=== PATIENT | male | born 1995 | race African-American/Black ===

== ENCOUNTER 2019-11-01 17:00 | Outpatient (RCR) | payer BC, OTHER, SELFPAY ==
--- NOTE | 2019-09-13 11:49 | PTOPEVAL ---
PHYSICAL THERAPY EVALUATION AND PLAN OF CARE Thank you for referring this patient to [facility]. Please see below for details over evaluation. He is scheduled to be seen 1x/week for 4 weeks with re-evaluation to follow. Please review, sign, date and return this plan of care DUYEN. I agree with and certify that the following plan of care is medically necessary. Referring Physician Date Evaluation Outpatient Past Medical History Past Medical History Past Medical History Status Patient Denies Significant Past Medical History Evaluation Information Problem Diagnosis low back pain Onset 5 years ago Cause football Subjective Information Bobbi is here today with c/o Query Text:As Reported By Patient/ low back pain, left side, Family with occasional left radicular pain. He also experiences pain below left shoulder blade. Initial injury was 5 years ago playing football and he was hit from the left and felt an immediate shock down the left leg. He currently experiences leg symptoms only periodically and they go as far as the calf. 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 describes delgado splints when running/training for football t Left Spine, Lumbar Reported Pain Level 4 Pain Description Aching,Soreness Pain Frequency Chronic Current Pain Intensity 4 Lowest Pain Intensity 1 Greatest Pain Intensity 10 Pain Aggravating Factors Exercise/Activity,Sitting Other Pain Aggravating Factors running Lumbar ROM Lumbar Flexion Active Floor Lumbar Extension (0-40) 30 Lumbar Lateral Flexion Right (0-40) 30 Lumbar Lateral Flexion Left (0-40) 30 Lumbar Comments significant muscle bulking at thoracolumbar region/ paraspinals, right greater than left General Lower Extremity Range of Motion Reason Not Measured WNL/Left,WNL/Right Lumbar Strength Upper Abdominal Strength 4 Good Lower Abdominal Strength 3 Fair General Lower Extremity Strength Reason Not Measured WNL/Left,WNL/Right Gross Lower Extremity Strength report
--- NOTE | 2019-10-04 16:08 | PCPTNOTE ---
Patient did not show up for scheduled appointment this date.
--- NOTE | 2019-10-11 18:04 | PTOPEVAL ---
PHYSICAL THERAPY PLAN OF CARE UPDATE AND PROGRESS REPORT Thank you for referring this patient to [facility]. Bobbi will continue PT 1x/week for 4 weeks. Please review, sign, date and return this plan of care DUYEN. I agree with and certify that the following plan of care is medically necessary. Referring Physician Date Evaluation Information Problem Diagnosis low back pain Onset 5 years ago Cause football Subjective Information Bobbi participated in PT Query Text:As Reported By Patient/ evaluation and 1 PT visit and Family then was unable to attend due to work and holidays. He has been performing his HEP up to 5days/week. He does not report any significant change in pain at this time - continues to be very painful after working at [employer] . Pain Assessment Left Spine, Lumbar Reported Pain Level 0 Pain Description Aching Current Pain Intensity 0 Greatest Pain Intensity 6 Pain Score Pain Score 0: Self Report Lumbar ROM Lumbar ROM Lumbar Flexion Active Floor Query Text:Hands to: Lumbar Extension (0-40) 30 Query Text:Active in Degrees Lumbar Lateral Flexion Right (0-40) 40 Query Text:Active in Degrees Lumbar Lateral Flexion Left (0-40) 40 Query Text:Active in Degrees Lumbar Comments significant muscle bulking at thoracolumbar region/ paraspinals, right greater than left --continues to have significant muscle bulking through paraspinals with increased kyphosis and forward shoulders General Lower Extremity Range of Motion Reason Not Measured WNL/Left,WNL/Right General Lower Extremity Strength Reason Not Measured WNL/Left,WNL/Right Gross Lower Extremity Strength reports right LE strength testing painful to low back; gluteus medius : R = 4+/5, left = 4-/5 Posture Posture Standing Position Posture Evaluation View Posterior Thoracic Spine Posture Increased Kyphosis Shoulder Posture (L) Forward,(R) Forward Scapula Posture (L) Protracted,(R) Protracted Palpation Palpation bilateral QL are tight and short, right>left; bilateral
--- NOTE | 2019-11-08 17:34 | PCPTNOTE ---
Patient did not show up for scheduled appointment this date.
--- NOTE | 2019-11-15 17:30 | PTOPEVAL ---
PHYSICAL THERAPY DISCHARGE REPORT Thank you for referring Bobbi to [facility]. I recommend discharge from PT at this time. Please review, sign, date and return this plan of care DUYEN. I agree with and certify that the following plan of care is medically necessary. Referring Physician Date Diagnosis low back pain Onset 5 years ago Cause football Subjective Information Bobbi participated in PT evaluation and 5 weeks of PT. He reports feeling much stronger and knowledgeable. He feels much more comfortable in performing conditioning for football. Left Spine, Lumbar Reported Pain Level 0 Lumbar ROM Lumbar Flexion Active Floor Query Text:Hands to: Lumbar Extension (0-40) 30 Query Text:Active in Degrees Lumbar Lateral Flexion Right (0-40) 50 Query Text:Active in Degrees Lumbar Lateral Flexion Left (0-40) 50 Query Text:Active in Degrees Lower Extremity Muscle Strength Testing Reason Not Measured WNL/Left,WNL/Right Gross Lower Extremity Strength gluteus medius: R = 5/5, left = 5/5 Palpation Palpation bilateral QL are tight and short, right>left; bilateral anterior tibialis: tight and trigger points, right>left --- progressing, but right continues to be worse than left Clinical Summary Bobbi is a 23 yo male presenting to outpatient PT with c/o chronic low back pain. Today he demonstrates normal strength and good movement quality of lumbar spine. He states that he feels much stronger and he understands how to use his new skills and knowledge. I recommend discharge at this time. PT Services Indicated Yes Rehabilitation Potential Good Patient/Caregiver's Personal Goals for decrease back pain, prepare Rehabilitation for football
== END 2019-11-16 08:39 | disposition home or self-care (01) ==
LOC: ANHPT 17:00
DX: M54.5 Low back pain (principal)
CPT/HCPCS: 97110; 97140; 97161

== ENCOUNTER 2020-01-28 12:31 | Emergency (ER) | payer BC, OTHER, SELFPAY ==
--- NOTE | ~2020-01-28 | XR_ITS ---
EXAMINATION: XR chest 2V DATE: 01/28/2020 12:55 INDICATION: Right-sided chest pain TECHNIQUE: PA and lateral views of the chest are obtained. COMPARISON: 01/16/2014 FINDINGS: The lungs are free of acute opacities. There is no pleural effusion or pneumothorax. The ca rdiomediastinal silhouette is normal. There is mild thoracic spondylosis. IMPRESSION: 1. No acute cardiopulmonary abnormality. Reviewed, dictated and finalized at location A.
[2020-01-28 12:40] VITALS: BP 140/73; PULSE 68; RESP 20; TEMP 36.8; O2SAT 100
--- NOTE | 2020-01-28 12:46 | ED.URI ---
HPI - URI/Sore Throat General Chief Complaint: Upper Respiratory Infection Stated Complaint: PAIN WITH DEEP BREATH Time Seen by Provider: 01/28/20 12:34 Source: patient Mode of arrival: ambulatory Limitations: no limitations History of Present Illness HPI Narrative: Patient is a 24-year-old male who presents with right-sided chest pain that occurred today patient notes pain to the anterior chest and posterior thorax pain is worse with deep breathing denies URI symptoms does note that yesterday he had diarrhea but denies any current abdominal pain fever chills nausea vomiting rectal bleeding or melena. Patient denies similar occurrence in the past and has not taken anything. Patient denies any sick contact Related Data Allergies Allergy/AdvReac Type Severity Reaction Status Date / Time No Known Allergies Allergy Verified 01/28/20 12:43 Review of Systems Review of Systems: All systems reviewed & are unremarkable except as noted in HPI and below PMFSH Social History Social History (Updated 01/28/20 @ 12:48 by Luciano Reid PA-C) Smoking status: Light tobacco smoker Substance use: never Living arrangements: with family Occupation/Education: occupation Gender identity (if verbalized by the patient): Male Exam Narrative: Exam Narrative: GENERAL: Well-appearing, well-nourished, and in no acute distress. HEAD: Normocephalic, atraumatic. EYES: PERRLA and EOMI. ENT: Nares clear, no rhinorrhea or epistaxis. Mucous membranes moist. CHEST: Clear to auscultation. No respiratory distress. No wheezes rales or rhonchi HEART: Regular rate and rhythm. No murmur heard. Normal peripheral pulses. ABDOMEN: Soft, nontender, nondistended EXTREMITIES: Normal range of motion. No edema. SKIN: Warm, dry, no rash. NEURO: No focal deficits. Alert and oriented x3. Cranial nerves II through XII grossly intact PSYCH: Normal mood and affect. Course Course Emergency Course: Patient in the room in no distress no high risk changes in the imaging or blood work felt appropriate for outpatient reevaluation Vital Signs Vital signs: Vital Signs Temperature 98.2 F 01/28/20 12:40 Pulse Rate 68 01/28/20 12:40 Respiratory Rate 20 01/28/20 12:40 Blood Pressure 140/73 01/28/20 12:40 Pulse Oximetry 100 01/28/20 12:40 Temperature 98.2 F 01/28/20 12:40 Pulse Rate 68 01/28/20 12:40 Respiratory Rate 20 01/28/20 12:40 Blood Pressure 140/73 01/28/20 12:40 Pulse Oximetry 100 01/28/20 12:40 MDM - URI/Sore Throat MDM Narrative Medical decision making narrative: Patient in the room in no distress no high risk changes in the blood work or imaging normal vital signs afebrile nontoxic-appearing no URI symptoms felt appropriate for outpatient reevaluation provided with reasons to return Lab Data Result diagrams: 01/28/20 13:38 01/28/20 13:38 Labs: Lab Results 01/28/20 01/28/20 01/28/20 Range/Units 13:38 13:38 13:38 WBC 3.2 L (4.5-10.0) K/mm3 RBC 5.16 (4.6-6.20) M/mm3 Hgb 15.8 (14.0-18.0) g/dL Hct 47.5 (42.0-52.0) % MCV 92.1 (80-100) fl MCH 30.6 (26-34) pg MCHC 33.3 (32-36) g/dl RDW 13.1 (11.5-14.5) % Plt Count 163 (150-375) k/mm3 MPV 11.3 H (7.4-10.4) fl Immature Gran % (Auto) 0.3 (0-0.5) % Neut % (Auto) 46.2 (45.5-73.1) % Lymph % (Auto) 40.9 (18.3-44.2) % Clinch % (Auto) 9.4 H (2.6-8.5) % Eos % (Auto) 1.9 (0-4.4) % Baso % (Auto) 1.3 H (0.2-1.2) % Lymph # (Auto) 1.31 (0.9-3.2) K/mm3 Clinch # (Auto) 0.3 (0.1-0.6) K/mm3 Eos # (Auto) 0.1 (0-0.3) K/mm3 Baso # (Auto) 0.0 (0.0-0.1) K/mm3 Abs Immat Gran (auto) 0.01 (0.00-0.031) K/mm3 Absolute Neuts (auto) 1.5 (1.3-6.7) K/mm3 Absolute Nucleated RBC 0.0 (0.0-0.012) K/mm3 Nucleated RBC % 0.0 (0.0-0.2) % D-Dimer 0.27 (<0.48) ug/mL Sodium 137 (137-145) mmol/L Potassium 4.2 (3.4-5.0) mmol/L Chloride 100
[2020-01-28 13:49] LABS: Basophils Percent Auto 1.3 % (0.2-1.2); Eosinophils Absolute Auto 0.1 K/mm3 (0-0.3); Eosinophils Percent Auto 1.9 % (0-4.4); Hematocrit 47.5 % (42.0-52.0); Hemoglobin 15.8 g/dL (14.0-18.0); Immature Granulocyte Absolute 0.01 K/mm3 (0.00-0.031); Immature Granulocyte Percent A 0.3 % (0-0.5); Lymphocytes Absolute Auto 1.31 K/mm3 (0.9-3.2); Lymphocytes Percent Auto 40.9 % (18.3-44.2); Mean Corpuscular HGB Conc 33.3 g/dl (32-36); Mean Corpuscular Hemoglobin 30.6 pg (26-34); Mean Corpuscular Volume 92.1 fl (80-100); Mean Platelet Volume 11.3 fl (7.4-10.4); Monocytes Absolute Auto 0.3 K/mm3 (0.1-0.6); Monocytes Percent Auto 9.4 % (2.6-8.5); Neutrophils Absolute Auto 1.5 K/mm3 (1.3-6.7); Neutrophils Percent Auto 46.2 % (45.5-73.1); Platelet Count Result 163 k/mm3 (150-375); Red Blood Count 5.16 M/mm3 (4.6-6.20); Red Cell Distribution Width 13.1 % (11.5-14.5); White Blood Count 3.2 K/mm3 (4.5-10.0)
[2020-01-28 14:02] LABS: Alanine Aminotransferase 18 U/L (4-50); Albumin Level 4.6 g/dL (3.5-5.1); Alkaline Phosphatase 53 U/L (38-126); Aspartate Amino Transferase 26 U/L (17-59); Bilirubin,Total 0.7 mg/dL (0.2-1.3); Blood Urea Nitrogen 15 mg/dL (9-20); Calcium 9.3 mg/dL (8.4-10.2); Carbon Dioxide 31 mmol/L (22-30); Chloride 100 mmol/L (98-107); Estimated Glomerular Filt Rate > 60; Glucose 83 mg/dL (75-110); Potassium 4.2 mmol/L (3.4-5.0); Sodium 137 mmol/L (137-145)
[2020-01-28 14:13] LABS: D Dimer 0.27 ug/mL (<0.48)
[2020-01-28 14:30] VITALS: BP 129/86; PULSE 64; RESP 14; O2SAT 100
== END 2020-01-28 14:30 | disposition home or self-care (01) ==
PROVIDERS: Emergency Medicine Emergency Medical Services; Emergency Provider Emergency Medicine
DX: R07.9 Chest pain, unspecified (principal); F17.200 Nicotine dependence, unspecified, uncomplicated
CPT/HCPCS: 36415; 71046; 80053; 85025; 85380; 99283

== ENCOUNTER 2022-07-25 13:25 | Emergency (ER) | payer OTHER, SELFPAY ==
[2022-07-25 13:33] VITALS: BP 137/64; PULSE 64; RESP 16; TEMP 36.6; O2SAT 100
--- NOTE | 2022-07-25 14:21 | ED.EXTPRO ---
HPI - Extremity Problem General Chief complaint: Extremity Problem,Nontraumatic Stated complaint: side Right Hand numbness Time Seen by Provider: 07/25/22 14:21 Source: patient, RN notes reviewed and old records reviewed Mode of arrival: ambulatory Limitations: no limitations History of Present Illness HPI Narrative: 26 year old male who presents to [facility] with complaint of right hand pain and numbness to ulnar side of his right hand intermittently. 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 He states after resting his arm a few days it improved. he states that if he uses his hand a lot the ulnar side of his hand and forearm get tight and painful, He is unable to get appointment prior to him [place] out of [place] the 07 of August. MD Complaint: extremity pain (right forearm and ulnar side of hand) Onset (ago): week(s) (1 -1 1/2) Severity scale (1-10): 6 (right ulnar aspect hand and forearm) Related Data Allergies Allergy/AdvReac Type Severity Reaction Status Date / Time No Known Allergies Allergy Verified 07/25/22 13:46 Review of Systems Review of Systems: CONSTITUTIONAL: Denies fever, chills, or sweats. CARDIOVASCULAR: Denies chest pain, palpitations, or edema. RESPIRATORY: Denies cough or dyspnea. SKIN: Denies rash or itching. Denies lacerations or abrasions MUSCULOSKELETAL: Reports intermittent numbness to right ulnar region of hand with tightness and pain to forearm area with increased use of right arm/hand NEUROLOGIC: Denies numbness, or weakness. All systems reviewed & are unremarkable except as noted in HPI and below PMFSH Social History Social History (Updated 07/25/22 @ 15:36 by Magalys Mckeon NP) Smoking status: Former smoker Tobacco type: cigarettes Alcohol intake: current Alcohol use details: social Substance use: never Gender identity (if verbalized by the patient): Male Comments At time of signature, agree with nursing past medical, surgical, social and family history. There is no relevant family history pertinent to the presenting complaint Exam Narrative: GENERAL: Well-appearing, well-nourished, and in no acute distress. HEAD: Normocephalic, atraumatic. EYES: PERRLA, conjunctivae clear NECK: Supple. CHEST: Speaks in full sentences. No respiratory distress. HEART: Regular rate and rhythm. Normal and equal peripheral pulses. EXTREMITIES: Right forearm and hand has normal strength and sensation, normal range of motion. No edema or ecchymosis. 5/5 strength with normal flexion and extension. Reports episodes of ulnar side of right hand feeling numb at times related on activity level.Normal sensation with sensitivity to light touch and pain at present time. No point tenderness.? ?No open wounds, no skin tenting, no devitalized tissue or atrophy, no trophic changes, no obvious deformity, alignment normal, nearby joints and structures intact. Distal pulses palpable and equal bilaterally, skin warm, dry, pink. Capillary refill less than 3 seconds. Course Course Level of Care: Express Care Visit Vital Signs Vital signs: Vital Signs Temperature 36.6 C 07/25/22 13:33 Pulse Rate 64 07/25/22 13:33 Respiratory Rate 16 07/25/22 13:33 Blood Pressure 137/64 07/25/22 13:33 Pulse Oximetry 100 07/25/22 13:33 Oxygen Delivery Room Air 07/25/22 13:33 Temperature 36.6 C 07/25/22 13:33 Pulse Rate 64 07/25/22 13:33 Respiratory Rate 16 07/25/22 13:33 Blood Pressure 137/64 07/25/22 13:33 Pulse Oximetry 100 07/25/22 13:33 Oxygen Delivery Room Air 07/25/22 13:33 MDM - Extremity (Nontraumatic) Differential Diagnosis Differential diagnosis: Likely other (pain to right hand and forearm, carpal tunnel syndrome, ulnar nerve entrapment) Medical Records Attestation: I reviewed the patient's medical records. Critical Care Time Critical Care Time
== END 2022-07-25 14:41 | disposition home or self-care (01) ==
PROVIDERS: Emergency Provider Registered Nurse
DX: G56.21 Lesion of ulnar nerve, right upper limb (principal); Z87.891 Personal history of nicotine dependence
CPT/HCPCS: 99213; G0463

== ENCOUNTER 2023-12-16 00:39 | Emergency (ER) | payer SELFPAY ==
--- NOTE | ~2023-12-16 | XR_ITS ---
Clinical Indication: Pain PA and lateral views of the chest: Comparison: None Findings: The lungs are clear, without evidence of focal consolidation or pleural effusion. Cardiome diastinal silhouette is within normal limits. Bones and soft tissues are unremarkable. Impression: Normal chest. Reviewed, dictated and finalized at location . Impression: Normal chest.
[2023-12-16 00:42] VITALS: BP 148/82; PULSE 60; RESP 16; TEMP 36.2; O2SAT 100
[2023-12-16 00:53] VITALS: BP 129/83; PULSE 60; RESP 15; TEMP 36.6; O2SAT 100
--- NOTE | 2023-12-16 01:11 | ED.GENADULT ---
HPI - General Adult General Chief complaint: Unspecified Stated complaint: shortness of breath/pain Time Seen by Provider: 12/16/23 01:01 Source: patient Mode of arrival: ambulatory Limitations: no limitations History of Present Illness HPI narrative: This is a 28-year-old male who presents to the ED with chief complaint of right-sided rib pain this started 4 days ago. Patient reports that he was playing football last week and had an injury to the chest wall. Reports the day after he started having some pain in the right chest wall. He states that the pain has slowly gotten progressively worse and he has some difficulty with breathing due to pain. Denies any further site of injury or pain. Denies exertional component to pain. Denies cough or recent illness. Related Data Allergies Allergy/AdvReac Type Severity Reaction Status Date / Time No Known Allergies Allergy Verified 12/16/23 00:46 Review of Systems Review of Systems: All systems as dictated in HPI Exam Narrative: GENERAL: Well-appearing, well-nourished, and in no acute distress. HEAD: Normocephalic, atraumatic. EYES: PERRLA and EOMI. ENT: Nares clear, no rhinorrhea or epistaxis. Mucous membranes moist. Oropharynx without tonsillar hypertrophy exudate or other lesions. NECK: Supple. No adenopathy or masses. CHEST: No respiratory distress. 100% room air. Tenderness to the right anterolateral chest wall. Point tenderness over the 8th rib. No bruising or crepitus. Breath sounds are equal bilaterally. HEART: Regular rate and rhythm. No murmur heard. Normal peripheral pulses. ABDOMEN: Soft, nontender, nondistended, normal active bowel sounds. MSK: Normal range of motion. No edema. SKIN: Warm, dry, no rash. NEURO: Alert and oriented x3. No focal deficits. PSYCH: Normal mood and affect. Course Vital Signs Vital signs: Vital Signs Temperature 97.2 F L 12/16/23 00:42 Pulse Rate 60 12/16/23 00:42 Respiratory Rate 16 12/16/23 00:42 Blood Pressure 148/82 H 12/16/23 00:42 Pulse Oximetry 100 12/16/23 00:42 Oxygen Delivery Room Air 12/16/23 00:42 Temperature 97.8 F 12/16/23 00:53 Pulse Rate 60 03/13/24 00:53 Respiratory Rate 15 12/16/23 00:53 Blood Pressure 129/83 12/16/23 00:53 Pulse Oximetry 100 12/16/23 00:53 Oxygen Delivery Room Air 12/16/23 00:42 Medical Decision Making MDM Narrative Medical decision making narrative: This is a 28-year-old male who presents to the ED with chief complaint of right-sided rib pain after injury that occurred just under a week ago. Vitals are normal. Exam remarkable for the above. He does have point tenderness to the right anterolateral ribs. No bruising or crepitus. No signs of trauma. Chest x-ray preliminary shows no acute findings. No obvious rib fracture identified. Patient will be treated for probable bruised rib. Explained that he may have a small fracture that is occult. Incentive spirometer given. Pt will be discharged in stable condition. Return precautions given and supportive measures discussed. Pt is understanding and agreeable with plan for discharge and follow-up with PCP. Vital Signs Vital Signs: Vital Signs Temperature 97.2 F L 12/16/23 00:42 Pulse Rate 60 12/16/23 00:42 Respiratory Rate 16 12/16/23 00:42 Blood Pressure 148/82 H 12/16/23 00:42 Pulse Oximetry 100 12/16/23 00:42 Oxygen Delivery Room Air 12/16/23 00:42 Temperature 97.8 F 12/16/23 00:53 Pulse Rate 60 12/16/23 00:53 Respiratory Rate 15 12/16/23 00:53 Blood Pressure 129/83 12/16/23 00:53 Pulse Oximetry 100 12/16/23 00:53 Oxygen Delivery Room Air 12/16/23 00:42 Discharge Plan Discharge Clinical Impression: Bruised rib Patient Disposition: Home, Self-Care Condition: Stable Instructions: Antibiotic Form Additional Instructions: Your exam and imaging are overall reassuring. There is a possible small fracture that canno
== END 2023-12-16 02:07 | disposition home or self-care (01) ==
LOC: ANHED 02:05
PROVIDERS: Emergency Provider Physician Assistant
DX: S20.211A Contusion of right front wall of thorax, initial encounter (principal); X58.XXXA Exposure to other specified factors, initial encounter
CPT/HCPCS: 71046; 99283

== ENCOUNTER 2024-05-18 20:41 | Emergency (ER) | payer OTHER, SELFPAY ==
--- NOTE | ~2024-05-18 | XR_ITS ---
EXAMINATION: XR chest 2V DATE: 05/18/2024 21:12 INDICATION: Chest pain and tightness TECHNIQUE: PA and lateral views of the chest were obtained. COMPARISON: Chest radiograph dated 12/16/2023 FINDINGS: The lungs remain clear with no focal airspace opacities, pulmonary edema, pleural effusion or pneumot horax. The cardiomediastinal silhouette is normal. Unchanged mild anterior wedging of a few mid thora cic vertebral bodies. IMPRESSION: 1. No acute cardiopulmonary disease. Reviewed, dictated and finalized at location A.
--- NOTE | 2024-05-18 20:45 | ECG_ITS ---
Test Date: 2024-05-18 20:51:09 Measurements Intervals [place] Rate: 72 P: 77 [place]: 158 QRS: 51 QRSD: 83 T: 58 QT: 346 QTc: 380 Interpretive Statements SINUS RHYTHM WITH SINUS ARRHYTHMIA No previous ECG available for comparison Electronically Signed On 05-19-2024 09:55:38 CDT by Leatha Mac M.D.
[2024-05-18 20:52] VITALS: BP 143/89; PULSE 71; RESP 20; TEMP 36.7; O2SAT 100
[2024-05-18 21:18] VITALS: O2SAT 100
--- NOTE | 2024-05-18 21:22 | ED.GENADULT ---
HPI - General Adult General Chief complaint: Chest Pain Stated complaint: chest pain Time Seen by Provider: 05/18/24 21:11 History of Present Illness HPI narrative: This is a pleasant 28-year-old male presenting ED with multiple complaints. Patient had his 1st child 2 months ago. Since then he has been having increased issues with anxiety. He had a panic attack in a restaurant 2 weeks ago and since then has been having intermittent chest tightness/pressure and tingling. The symptoms happen throughout the day but mostly when he is by himself. The symptoms go away when he is with his family. Patient is also started to have intermittent loose stools and constipation over the last several weeks. It is associated with some crampy lower abdominal pain. He has also developed reflux symptoms and feels that when he eats too much a meal it sits in stomach and then he gets regurgitation into his throat. Patient denies fevers chills URI symptoms shortness of breath urinary symptoms. Suicidal or homicidal ideation. Related Data Allergies Allergy/AdvReac Type Severity Reaction Status Date / Time No Known Allergies Allergy Verified 12/16/23 00:46 Exam Narrative: APPEARANCE: Well-appearing, anxious Head: atraumatic. EYES: EOMI, NOSE: Atraumatic NECK: Trachea midline RESPIRATORY: No increased rate of breathing clear to auscultation CARDIOVASCULAR: RRR, no peripheral edema ABDOMINAL: Non-distended soft nontender no CVA tenderness MUSCULOSKELETAl: No obvious deformities NEURO: Alert. Moving 4/4 extremities SKIN:: Warm, dry. Normal color PSYCHIATRIC: Anxious Course Vital Signs Vital signs: Vital Signs Temperature 98.1 F 05/18/24 20:52 Pulse Rate 71 05/18/24 20:52 Respiratory Rate 20 05/18/24 20:52 Blood Pressure 143/89 H 05/18/24 20:52 Pulse Oximetry 100 05/18/24 20:52 Oxygen Delivery Room Air 05/18/24 20:52 Temperature 98.1 F 05/18/24 20:52 Pulse Rate 71 05/18/24 20:52 Respiratory Rate 20 05/18/24 20:52 Blood Pressure 143/89 H 05/18/24 20:52 Pulse Oximetry 100 05/18/24 21:18 Oxygen Delivery Room Air 05/18/24 21:18 Medical Decision Making [facility] Narrative Medical decision making narrative: -Course: This is a 28-year-old male who is recently becoming father presenting with multiple complaints. Patient has been having new onset anxiety with panic attacks that are associated with intermittent chest tightness. He has also had alternating constipation and loose stools as well as reflux symptoms. He has no findings on exam. His vital signs are stable. He is well-appearing. Chest x-ray and EKG were normal. Patient would like referral to a primary care physician for further management of his anxiety and other miscellaneous complaints. -DDX includes but is not limited to: Anxiety, stress reaction, viral syndrome, irritable bowel syndrome, enteritis -Social determinants of health: Patient has a 2-month-old child at home, denies drugs or alcohol -Independent interpretation of studies: Chest x-ray clear. Independent EKG interpretation: Rhythm [sinus], Rate [72], [place] -[normal], [place] -[normal], QRS [narrow], QTC [normal], T waves -[negative for concerning inversions], ST Segments - [Negative for concerning elevations] Final interpretations: [Normal Sinus Rhythm -Dx tests considered but not ordered: PE studies-PERC negative -Shared decision making / Disposition:discharged -RX Pepcid 20 mg b.i.d. x6 weeks Vital Signs Vital Signs: Vital Signs Temperature 98.1 F 05/18/24 20:52 Pulse Rate 71 05/18/24 20:52 Respiratory Rate 05/18/24 20:52 Blood Pressure 143/89 H 05/18/24 20:52 Pulse Oximetry 100 05/18/24 20:52 Oxygen Delivery Room Air 05/18/24 20:52 Temperature 98.1 F 05/18/24 20:52 Pulse Rate 71 05/18/24 20:52 Respiratory Rate 20 05/18/24 20:52 Blood Pressure 143/89 H 05/18/24 20:52 Pulse Oximetry 100 05/18/24 21:18 Oxygen Delivery Room Air
[2024-05-18 22:37] VITALS: BP 139/83; PULSE 88; RESP 17; TEMP 36.9; O2SAT 100
== END 2024-05-18 21:47 | disposition home or self-care (01) ==
PROVIDERS: Emergency Provider Emergency Medicine
DX: F43.9 Reaction to severe stress, unspecified (principal); K21.9 Gastro-esophageal reflux disease without esophagitis
CPT/HCPCS: 71046; 93005; 99284

== ENCOUNTER 2024-05-25 21:24 | Emergency (ER) | payer OTHER, SELFPAY ==
--- NOTE | ~2024-05-25 | CT_ITS ---
EXAMINATION: CT abdomen pelvis w con DATE: 05/26/2024 00:39 INDICATION: Abdominal pain. TECHNIQUE: Computed tomography (CT) of the abdomen and pelvis was performed with 100 mL Omnipaque 350 intravenous contrast. Automated exposure control and iterative reconstruction technique were employe d. The dose-length product was 327.81 mGy-cm. COMPARISON: None. FINDINGS: The visualized portions of the lung bases are clear without pneumonia or pleural effusion. The heart size is normal. No pericardial effusion. The liver, gallbladder, spleen, pancreas, adrenal glands, and kidneys are normal. The base of the appendix is gas-filled and 5 mm in diameter. The blin d end of the appendix is fluid-filled and dilated to 10 mm. There are appendicoliths in the appendix. There are no pathologically enlarged lymph nodes. There is no ascites. There is mild lumbar spondylo sis. IMPRESSION: 1. Acute appendicitis. I called this result to Dr. Fenton. Reviewed, dictated and finalized at location A.
[2024-05-25 21:27] VITALS: BP 136/78; PULSE 64; RESP 15; TEMP 36.7; O2SAT 100
[2024-05-25 23:38] VITALS: BP 138/97; PULSE 63; RESP 18; O2SAT 100
[2024-05-26 00:02] LABS: Basophils Absolute Auto 0.1 K/mm3 (0.0-0.1); Basophils Percent Auto 1.1 % (0.2-1.2); Eosinophils Absolute Auto 0.1 K/mm3 (0-0.3); Eosinophils Percent Auto 1.4 % (0-4.4); Hemoglobin 15.3 g/dL (14.0-18.0); Lymphocytes Absolute Auto 2.43 K/mm3 (0.9-3.2); Lymphocytes Percent Auto 55.4 % (18.3-44.2); Mean Corpuscular Hemoglobin 30.8 pg (26-34); Mean Corpuscular Volume 90.5 fl (80-100); Mean Platelet Volume 10.4 fl (7.4-10.4); Monocytes Absolute Auto 0.3 K/mm3 (0.1-0.6); Monocytes Percent Auto 7.7 % (2.6-8.5); Neutrophils Absolute Auto 1.5 K/mm3 (1.3-6.7); Neutrophils Percent Auto 34.4 % (45.5-73.1); Platelet Count Result 165 k/mm3 (150-375); Red Blood Count 4.97 M/mm3 (4.6-6.20); Red Cell Distribution Width 12.8 % (11.5-14.5); White Blood Count 4.4 K/mm3 (4.5-10.0)
[2024-05-26 00:13] LABS: Alanine Aminotransferase 15 U/L (6-50); Albumin Level 4.8 g/dL (3.5-5.1); Alkaline Phosphatase 53 U/L (38-126); Anion Gap 10 mmol/L (4-12); Aspartate Amino Transferase 26 U/L (17-59); Bilirubin,Total 0.6 mg/dL (0.2-1.3); Blood Urea Nitrogen 12 mg/dL (9-20); Calcium 9.7 mg/dL (8.4-10.2); Carbon Dioxide 29 mmol/L (22-30); Chloride 98 mmol/L (98-107); Estimated CRCL calculation 95 ml/min; Estimated Glomerular Filt Rate > 60; Glucose 90 mg/dL (65-110); Lipase 36 U/L (23-300); Potassium 4.2 mmol/L (3.4-5.0); Sodium 137 mmol/L (137-145)
--- NOTE | 2024-05-26 00:36 | ED.GENADULT ---
HPI - General Adult General Chief complaint: Abdominal Pain Stated complaint: ABD PAIN Time Seen by Provider: 05/25/24 23:36 History of Present Illness HPI narrative: patient 28-year-old gentleman presents emergency department chief complaint of abdominal pain. Patient reports he has been having pain in the epigastric and left upper quadrant area the patient reports seen emerged department recently given a prescription for Pepcid is not going to fill the patient reports he has had constipation but has had a bowel yesterday morning. Patient states that he has had no vomiting no diarrhea denies fever Related Data Allergies Allergy/AdvReac Type Severity Reaction Status Date / Time No Known Allergies Allergy Verified 05/25/24 23:39 Review of Systems Review of Systems: A 10 system review of systems was completed on the patient and is negative except for what is stated in the HPI. Nursing and ancillary documentation was reviewed. Exam Narrative: GENERAL: Well-appearing, well-nourished, and in no acute distress. HEAD: Normocephalic, atraumatic. EYES: PERRLA and EOMI. ENT: Nares clear, no rhinorrhea or epistaxis. Mucous membranes moist. NECK: Supple. CHEST: Clear to auscultation. No respiratory distress. HEART: Regular rate and rhythm. No murmur heard. Normal peripheral pulses. ABDOMEN: Soft, mild tenderness to palpation the right lower quadrant, nondistended, normal active bowel sounds. EXTREMITIES: Normal range of motion. No edema. SKIN: Warm, dry, no rash. NEURO: No focal deficits. Alert and oriented x3. PSYCH: Normal mood and affect. Course Vital Signs Vital signs: Vital Signs Temperature 36.7 C 05/25/24 21:27 Pulse Rate 64 05/25/24 21:27 Respiratory Rate 15 05/25/24 21:27 Blood Pressure 136/78 05/25/24 21:27 Pulse Oximetry 100 05/25/24 21:27 Oxygen Delivery Room Air 05/25/24 21:27 Temperature 36.7 C 05/25/24 21:27 Pulse Rate 62 05/26/24 04:17 Respiratory Rate 20 05/26/24 04:17 Blood Pressure 126/72 05/26/24 04:17 Pulse Oximetry 100 05/26/24 04:17 Oxygen Delivery Room Air 05/25/24 21:27 Medical Decision Making MDM Narrative Medical decision making narrative: differential diagnosis includes intra-abdominal infection, constipation, gastritis, appendicitis, diverticulitis, colitis laboratory studies were obtained on the patient showed a white count of 4.4 electrolytes are within normal limits liver enzymes are normal lipase was normal urinalysis showed trace ketones scan of the abdomen pelvis showed moderate fecal retention consistent with constipation. Normal appendix the patient will be discharged home with a prescription for Protonix and also given a prescription for MiraLax. The patient has follow-up with his primary care provider Vital Signs Vital Signs: Vital Signs Temperature 36.7 C 05/25/24 21:27 Pulse Rate 64 05/25/24 21:27 Respiratory Rate 15 05/25/24 21:27 Blood Pressure 136/78 05/25/24 21:27 Pulse Oximetry 100 05/25/24 21:27 Oxygen Delivery Room Air 05/25/24 21:27 Temperature 36.7 C 05/25/24 21:27 Pulse Rate 62 05/26/24 04:17 Respiratory Rate 20 05/26/24 04:17 Blood Pressure 126/72 05/26/24 04:17 Pulse Oximetry 100 05/26/24 04:17 Oxygen Delivery Room Air 05/25/24 21:27 Lab Data 05/25/24 23:56 05/25/24 23:56 Labs: Lab Results 05/25/24 05/26/24 Range/Units 23:56 01:26 WBC 4.4 L (4.5-10.0) K/mm3 RBC 4.97 (4.6-6.20) M/mm3 Hgb 15.3 (14.0-18.0) g/dL Hct 45.0 (42.0-52.0) % MCV 90.5 (80-100) fl MCH 30.8 (26-34) pg MCHC 34.0 (32-36) g/dl RDW 12.8 (11.5-14.5) % Plt Count 165 (150-375) k/mm3 MPV 10.4 (7.4-10.4) fl Immature Gran % (Auto) 0.0 (0-0.5) % Neut % (Auto) 34.4 L (45.5-73.1) % Lymph % (Auto) 55.4 H (18.3-44.2) % [place] % (Auto) 7.7 (2.6-8.5) % Eos % (Auto) 1.4 (0-4.4) % Baso % (
[2024-05-26 01:08] VITALS: BP 122/77; PULSE 60; RESP 17; O2SAT 100
[2024-05-26 01:34] LABS: Add Urine Microscopic? NO; Appearance Urine Clear (Clear); Bilirubin Urine Negative (Negative); Blood Urine Negative (Negative); Color Urine Yellow (Yellow); Glucose Urine UA Negative (Negative); Ketones Urine Trace mg/dL (Negative); Leukocyte Esterase Ur Negative LEU/UL (Negative); Nitrate Urine Negative (Negative); Protein Urine Negative (Negative); Specific Grav Ur 1.014 (1.001-1.035); Urobilinogen Urine 0.2 mg/dL (<2.0); pH Urine 6.5 (5.0-9.0)
[2024-05-26 04:17] VITALS: BP 126/72; PULSE 62; RESP 20; O2SAT 100
== END 2024-05-26 04:35 | disposition home or self-care (01) ==
PROVIDERS: Emergency Provider Emergency Medicine
DX: K29.70 Gastritis, unspecified, without bleeding (principal); K59.00 Constipation, unspecified
CPT/HCPCS: 36415; 74177; 80053; 81003; 83690; 85025; 99284; Q9967

== ENCOUNTER 2024-05-26 15:01 | Observation (INO) | payer OTHER, SELFPAY ==
[2024-05-26 15:07] VITALS: BP 136/82; PULSE 74; RESP 18; TEMP 36.8; O2SAT 99
--- NOTE | 2024-05-26 15:09 | ED.GENADULT ---
HPI - General Adult General Chief complaint: Abdominal Pain Stated complaint: abdominal pain Time Seen by Provider: 05/26/24 15:04 History of Present Illness HPI narrative: Patient is a 28-year-old male who presents ER with lower abdominal pain. He was seen overnight diagnosed with constipation. An over read of the CT scan shows that he has acute appendicitis. He was called to return to the ER. He has had no significant change in his pain. He has had a bowel movement. No fevers or chills or sweats. He has not had anything to eat or drink today. Related Data Home Medications Medication Instructions Recorded Confirmed No Home Medications 05/26/24 05/26/24 Allergies Allergy/AdvReac Type Severity Reaction Status Date / Time No Known Allergies Allergy Verified 05/25/24 23:39 Review of Systems Review of Systems: All systems reviewed & are unremarkable except as noted in HPI and below Constitutional: Constitutional: Reports no additional constitutional complaints ENT: Reports system reviewed and no additional complaints, except as documented Gastrointestinal: Gastrointestinal: Reports abdominal pain, Reports constipation, Denies diarrhea, Denies nausea and Denies vomiting Genitourinary: Genitourinary: Reports no additional male genitourinary complaints [facility] Past Medical History Medical History (Updated 05/26/24 @ 18:50 by Rolando Porras MD) Anxiety disorder Surgical History Surgical History (Updated 05/26/24 @ 18:48 by Rolando Porras MD) No pertinent past surgical history Family History Family History Father Cerebrovascular accident Other Colon cancer Sibling Asthma Grandparent Asthma Mother In good health Social History Social History Smoking status: Never smoker Alcohol intake: current Substance use: never Do You Feel Safe in your Home?: Yes Lack of Transportation: No Lack of Food: Never True Current Housing: I Have Housing Concerned About Future Housing: No Difficulty Paying Gas/Electric Bills: No Difficulty Paying for Meds: No Currently Unemployed: No Education: High School Diploma/GED Difficulty w/ Childcare or Family Care: No Spiritual care concerns: No Exam Narrative: GENERAL: Well-appearing, well-nourished, and in no acute distress. HEAD: Normocephalic, atraumatic. ENT: Mucous membranes moist. NECK: Supple. CHEST: Clear to auscultation. No respiratory distress. HEART: Regular rate and rhythm. Normal peripheral pulses. ABDOMEN: Soft, nontender, nondistended. EXTREMITIES: Normal range of motion. No edema. SKIN: Warm, dry, no rash. NEURO: Alert and oriented x3. PSYCH: Normal mood and affect. Course Course Emergency Course: Discussed case with General surgery. Admit to their service. NPO midnight. IV Zosyn by recommendation of General surgery. Previous ER visit note and lab/imaging reviewed so no additional orders at this time. Vital Signs Vital signs: Vital Signs Temperature 98.2 F 05/26/24 15:07 Pulse Rate 74 05/26/24 15:07 Respiratory Rate 18 05/26/24 15:07 Blood Pressure 136/82 05/26/24 15:07 Pulse Oximetry 99 05/26/24 15:07 Oxygen Delivery Room Air 05/26/24 15:07 Temperature 97.6 F 05/26/24 17:37 Pulse Rate 65 05/26/24 17:37 Respiratory Rate 18 05/26/24 17:37 Blood Pressure 123/81 05/26/24 17:37 Pulse Oximetry 100 05/26/24 17:37 Oxygen Delivery Room Air 05/26/24 15:07 Medical Decision Making Vital Signs Vital Signs: Vital Signs Temperature 98.2 F 05/26/24 15:07 Pulse Rate 74 05/26/24 15:07 Respiratory Rate 18 05/26/24 15:07 Blood Pressure 136/82 05/26/24 15:07 Pulse Oximetry 99 05/26/24 15:07 Oxygen Delivery Room Air 05/26/24 15:07 Temperature 97.6 F 05/26/24 17:37 Pulse Rate 65 05/26/24 17:37 Respiratory Rate 18
[2024-05-26] MEDS: PIPERACILLN/TAZ 3.375GM/NS50ML 3.375 GM/50 ML BAG IVPB ×2 (16:08→23:32)
--- NOTE | 2024-05-26 16:31 | PC.NURSE ---
Meal tray ordered for pt.
--- NOTE | 2024-05-26 16:56 | PC.NURSE ---
Requested for pts meal tray to be sent to room 253.
--- NOTE | 2024-05-26 17:00 | ADMGEN ---
This patient, Bobbi Rich Jr., was admitted to Medical Room 253-01. Patient/family oriented to hospital policies and general routines including ID bracelet, bed and alarms, visiting hours, pain management, procedures, bathroom and other care routines, personal items, smoking policy, room service/diet, and visiting hours. Information on how to activate the Rapid Response Team has been discussed. Patient/Family are encouraged to report perceived risks to care and to ask questions if they do not understand what they are told or what they should do.
[2024-05-26 17:37] VITALS: BP 123/81; PULSE 65; RESP 18; TEMP 36.4; O2SAT 100
[2024-05-26 17:53] VITALS: BMI 24.7
--- NOTE | 2024-05-26 18:05 | PM.IMHP ---
H&P: HPI History of Present Illness Date/Time: 05/26/24 18:05 Chief Complaint: Abnormal CT scan Narrative: Patient is a 28-year-old man who has felt fatigued, and unwell for a couple of months. He relates the onset of his present condition to a feeling of chest pain 2 months ago. He not only will get chest pain and some shortness of breath but also has noted that he is severely constipated. He relates that for nearly all is life, any time he ate, he would go to the bathroom very soon thereafter. However, for the last year or more, he has had problems with constipation. He has no idea why. He was in the emergency room here on May 18 in it was noted that 2 months prior to that he became a father and has been having a lot of anxiety associated with that. In that emergency room visit he also had complaints of loose stools and constipation as well as some heartburn symptoms. He was diagnosed as having reflux and given a prescription for Pepcid b.i.d.. He was to follow up with Dr. Bansal or Dr. Beckett within 1 week. He tells me that he does have an appointment with Dr. Beckett but it is not until August. He came back to our emergency room at 11:30 a.m. last night and was seen. At that point he had epigastric and left upper quadrant pain. A CT scan was done and was read and transmitted about 2:40 a.m. showing constipation and a normal appendix. Patient was discharged from the emergency room early last night but then called today as the radiologist this morning read the CT scan as acute appendicitis. I was called by the emergency room physician this afternoon with the above finding. The CT scan is read as appendicoliths and a normal, 5 mm air-filled proximal appendix with the blind end of the appendix being 10 mm and containing fluid. His white blood cell count last night was 4400. He has not had any fever or tachycardia. He was brought into the hospital for observation and started on IV Zosyn antibiotics for possible appendicitis. He has already had a regular diet supper and from the looks of the tray essentially ate all of it. When I came into the room he was up walking around appearing very comfortable. He is seen now for observation admission regarding his abnormal CT scan and various complaints as noted above. Review of Systems Review of Systems: All systems reviewed & are unremarkable except as noted in HPI and below (HPI) [facility] Family History Family History Father Cerebrovascular accident Other Colon cancer Sibling Asthma Grandparent Asthma Mother In good health Meds Home Medications and Allergies Home Medications Medication Instructions Recorded Confirmed Type No Home Medications 05/26/24 05/26/24 History Allergies Allergy/AdvReac Type Severity Reaction Status Date / Time No Known Allergies Allergy Verified 05/25/24 23:39 Vital Signs Vital Signs - 24 hr 05/26/24 15:07 05/26/24 17:37 Temperature 36.8 C 36.4 C Pulse Rate 74 65 Respiratory Rate 18 18 Blood Pressure 136/82 123/81 Pulse Oximetry 99 100 Oxygen Delivery Room Air Exam Const: General: comfortable, no acute distress, alert, awake, well nourished and thin Orientation/consciousness: patient oriented x3 HENMT: Head: normocephalic and atraumatic Mouth: Yes Normal oral and palatal mucosa present Eyes: Conjunctivae: conjunctivae normal Pupils: Equal, round and reactive pupils present EOM: EOMs intact bilaterally Neck: Neck: normal visual inspection, no lymphadenopathy and nontender Resp: Effort & Inspection: normal respiratory effort Auscultation: clear to auscultation bilaterally Cardio: Rate: regular rate Rhythm: regular rhythm Heart sounds: no gallops, no murmurs and no rubs GI: Inspection: normal to inspection (A large tattoo), non-distended, scaphoid, no scars and no visible herniation GI Palp: Yes Soft to palpation, No Tenderness to palpation present (GI), N
[2024-05-26] MEDS: SODIUM CHLORIDE 0.9% IV 1,000 ML 80 ML IV CONT (19:33)
[2024-05-26 20:18] VITALS: BP 120/75; PULSE 70; RESP 20; TEMP 36.3; O2SAT 100
[2024-05-26 21:08] VITALS: O2SAT 99
[2024-05-27 05:21] VITALS: BP 112/56; PULSE 61; RESP 20; TEMP 36.1; O2SAT 99
[2024-05-27 05:38] LABS: Basophils Percent Auto 1.1 % (0.2-1.2); Eosinophils Absolute Auto 0.1 K/mm3 (0-0.3); Eosinophils Percent Auto 2.6 % (0-4.4); Hematocrit 43.2 % (42.0-52.0); Hemoglobin 14.7 g/dL (14.0-18.0); Lymphocytes Absolute Auto 2.05 K/mm3 (0.9-3.2); Lymphocytes Percent Auto 53.9 % (18.3-44.2); Mean Corpuscular Hemoglobin 31.1 pg (26-34); Mean Corpuscular Volume 91.3 fl (80-100); Mean Platelet Volume 10.4 fl (7.4-10.4); Monocytes Absolute Auto 0.3 K/mm3 (0.1-0.6); Monocytes Percent Auto 8.7 % (2.6-8.5); Neutrophils Absolute Auto 1.3 K/mm3 (1.3-6.7); Neutrophils Percent Auto 33.7 % (45.5-73.1); Platelet Count Result 154 k/mm3 (150-375); Red Blood Count 4.73 M/mm3 (4.6-6.20); Red Cell Distribution Width 12.6 % (11.5-14.5); White Blood Count 3.8 K/mm3 (4.5-10.0)
[2024-05-27 05:52] LABS: Alanine Aminotransferase 13 U/L (6-50); Albumin Level 4.1 g/dL (3.5-5.1); Alkaline Phosphatase 46 U/L (38-126); Anion Gap 8 mmol/L (4-12); Aspartate Amino Transferase 21 U/L (17-59); Bilirubin,Total 0.5 mg/dL (0.2-1.3); Blood Urea Nitrogen 16 mg/dL (9-20); CRP < 0.5 mg/dL (<1.0); Calcium 8.9 mg/dL (8.4-10.2); Carbon Dioxide 28 mmol/L (22-30); Chloride 102 mmol/L (98-107); Estimated CRCL calculation 88 ml/min; Estimated Glomerular Filt Rate > 60; Glucose 87 mg/dL (65-110); Potassium 4.2 mmol/L (3.4-5.0); Sodium 138 mmol/L (137-145)
[2024-05-27] MEDS: PIPERACILLN/TAZ 3.375GM/NS50ML 3.375 GM/50 ML BAG IVPB (06:15)
[2024-05-27] MEDS: SODIUM CHLORIDE 0.9% IV 1,000 ML 80 ML IV CONT (08:45)
[2024-05-27] MEDS: PSYLLIUM POWDER PACKET 1 PACKET PO (09:20)
--- NOTE | 2024-05-27 10:19 | PM.DS ---
DS: Admitting Diagnosis Discharge Date 05/27/[address] scan abdomen Chronic constipation-change in bowel habits Anxiety, panic attacks DS: Discharge Diagnosis Discharge Diagnosis (1) Abnormal CT of the abdomen: Code(s): R93.5 - Abnormal findings on diagnostic imaging of other abdominal regions, including retroperitoneum Status: Acute Assessment and Plan: CT scan read as tip appendicitis. Patient by clinical and laboratory testing does not have appendicitis. He will be discharged however on oral antibiotics. He was having no abdominal pain whatsoever and no tenderness on the day of discharge. (2) Anxiety disorder: Qualifiers: Anxiety disorder type: unspecified anxiety disorder Qualified Code(s): F41.9 - Anxiety disorder, unspecified Code(s): F41.9 - Anxiety disorder, unspecified Status: Acute Assessment and Plan: Patient reports panic attacks, chest discomfort, excessive worrying. I have arranged for him to see a primary care provider 06/02/2024. (3) Chronic constipation: Code(s): K59.09 - Other constipation Status: Chronic Assessment and Plan: Etiology unclear. I will go ahead and start him on Metamucil 1 tbsp b.i.d. with Senokot S2 tabs at bedtime. I will see him back in the office in 2 weeks for follow-up. DS: Summary Hospital Course Hospital Course: Patient came to the emergency room very late on 05/25/2024. He was having abdominal pain. He had a CT scan done at that time which showed constipation but was negative for appendicitis. This was read by the tele radiology group. Early yesterday morning, 1 of our full-time radiologist reread the CT scan and felt that it showed tip appendicitis with a 10 mm diameter tip of the appendix that had fluid within it. Patient was admitted for observation yesterday. Clinically he had no findings to suggest appendicitis. His white blood cell count was normal. My review of the CT scan did not see appendicitis either. He was started on Zosyn antibiotics and tolerated solid food. This morning, he denies any abdominal pain whatsoever. His abdominal exam is completely normal even with deep palpation. His white blood cell count is actually low with a lymphocyte predominance. A CRP was done and that is within normal limits as well. Patient was also in the emergency room on May 18 primarily with anxiety complaints. He also expressed to me complaints of chest pain, excessive anxiety, shortness of breath. He is a new father as of 2-3 months ago. He also expressed that within the last year he has had a significant change in bowel habits such that he is chronically constipated. His entire life up until that time he had more bowel movements than he cared to. Primarily he would eat and have to go to the bathroom very soon thereafter. His CT scan both on 05/18 and yesterday showed significant retention of stool and constipation. On 05/18 he was recommended to see either Dr. Beckett or Dr. Bansal within 1 week. His appointment with Dr. Beckett was not made to be within that time frame and was scheduled for August. While in the hospital, I called Dr. Mayer office and patient will see primary care provider Jazz Barbour on June 02 2024 at 10:30 a.m. in the morning. He is discharged now on Augmentin for another 6 days. He is also discharged on Metamucil 1 tbsp twice a day as well as Senokot S2 tabs p.o. q.h.s. for 1 week. I will see him back in the office in 2 weeks regarding his constipation. Patient does not have appendicitis by my evaluation despite the CT scan reading. Status at Discharge Functional status at discharge: independent ambulation Overall status at discharge: patient is back to baseline Time Spent with Patient Time attestation: Total time spent providing and/or coordinating discharge services: Time spent: Greater than 30 minutes Exam Const: General: cooperative, healthy appearing, com
== END 2024-05-27 11:56 | disposition home or self-care (01) ==
LOC: ANHED 15:38 → ANH2MED 16:43
PROVIDERS: Admitting Provider Surgery; Emergency Provider Emergency Medicine; PCP Family Medicine; Visit Provider Surgery
DX: R93.5 Abnormal findings on diagnostic imaging of other abdominal regions, including retroperitoneum (principal); K59.00 Constipation, unspecified; R10.30 Lower abdominal pain, unspecified; F41.9 Anxiety disorder, unspecified; R06.02 Shortness of breath; R07.9 Chest pain, unspecified; K21.9 Gastro-esophageal reflux disease without esophagitis
CPT/HCPCS: 36415; 74177; 80053; 81003; 83690; 85025; 86140; 96360; 96361; 96365; 99284; 99285; A9270; G0378; J2543; J7030; Q9967